=== PATIENT | female | born 1960 | race Caucasian/White ===

== ENCOUNTER 2016-08-24 21:43 | Inpatient (IN) | payer OTHER ==
--- NOTE | ~2016-08-24 | DS ---
Discharge Summary [facility] [address] [place]. [address] NAME: CASSANDRA ROCK : 62 STATUS : ADM IN [facility]#: [id number] AGE: 55 ADM/REG DATE : 08/24/16 MR#: [id number] REPORT SERV DATE: 08/29/16 DICTATED BY: PABLO WAITE DATE: 08/29/16 REPORT STATUS : Draft TRANSCRIBED BY: MODL DATE: 08/29/16 ADMISSION DATE: 08/24/2016 DISCHARGE DATE: 08/29/2016 DIAGNOSES ON ADMISSION: 1. Dyspnea. 2. Chest pain. 3. History of rectal cancer. 4. Thoracic ascending aneurysm. 5. Large hiatal hernia. 6. Adrenal insufficiency. DIAGNOSES ON DISCHARGE: 1. Dyspnea, present on admission, resolved. No evidence of cardiac cause of dyspnea. 2. Echocardiogram grossly normal with normal systolic function of 55%. Normal right ventricular size and function. Grossly normal diastolic function. Evaluated by Dr. Tejeda. No evidence of cardiac chest pain. 3. Dyspnea, improved. 4. Dyspnea multifactorial secondary to large hiatal hernia as well as weakness, deconditioning. 5. Right middle lobe hazy infiltrates, nonspecific in character, no evidence of infection, seen by lamp cleaner street light, recommended follow up in several weeks with Pulmonary office. 6. History of adrenal insufficiency. Continue hydrocortisone replacement. 7. History of rectal cancer status post chemotherapy, weakness, and decreased nutritional status. Needs to continue physical therapy at home. 8. Thoracic ascending aneurysm. Needs surveillance followup per primary care provider. CONSULTANTS ON THE CASE: Protective Signal Repairer Helper, Dr. Tejeda, and Matthias Stacy, nurse practitioner of Dr. Gaspar. IMAGING DONE DURING THIS HOSPITALIZATION: CT of the chest done on 08/24/2016, showed no evidence of pulmonary embolism, subtle small peripheral pleural-based ground-glass nodular opacities in the right middle lobe, both lower lobes and lingula suggesting a nonspecific inflammatory or infectious process. Does not have neoplastic appearance. No thoracic adenopathy. Mild fusiform aneurysmal change in the ascending thoracic aorta, measuring 3.5 cm, stable from recent prior examination, moderately large 5.7 cm diameter hiatal hernia. Echocardiogram was normal with normal ejection fraction of 55%. HISTORY OF PRESENT ILLNESS: Briefly, this is a 55-year-old female, who was admitted by Dr. Tha Welch on 08/24/2016 with shortness of breath and chest discomfort. For details, see his dictation on the same day, 08/24/2016. Subsequently, the patient was seen by art installer, Dr. Tejeda, who does not think it is cardiac, and he thinks that the patient most likely has a large hiatal hernia, some deconditioning, and he also recommended pulmonary evaluation for this patient for the Discharge Summary [address] [address] NAME: CASSANDRA ROCK : 62 STATUS : ADM IN PAT#: [id number] AGE: 55 ADM/REG DATE : 08/24/16 MR#: [id number] REPORT SERV DATE: 08/29/16 DICTATED BY: PABLO WAITE DATE: 08/29/16 REPORT STATUS : Draft TRANSCRIBED BY: DAYSI DATE: 08/29/16 nodular infiltrates on the CT of the chest. Matthias Stacy saw the patient and he thinks that the exertional dyspnea is multifactorial secondary to large hiatal hernia and patchy ground- glass opacities in the lungs. He does not think it is infectious process in the lungs. He recommended pulmonary function testing to be done while she is inpatient and then Matthias Stacy was okay, the patient to be discharged and follow up with Pulmonary Clinic, as well as Dr. Tejeda does not think that the patient needs Lasix, may be minimal dose of 20 mg a day since BNP was in the normal range, it was 9.4, so I discussed this personally with Dr. Tejeda and he said if it is really needed, just a minimal dose of Lasix 20 mg a day. At the same time, we recommended to optimize her nutrition and nourishment status to take Ensure with meals and physical therapy and follow up with Pulmonary as well as with her primary care physician, Sosa Waite, and home health with physical therapy, as well as she needs to follow up with her oncologist, Dr. David Esposito. I recommended the patient to stop estrogen-progesterone replacement until she talks to Dr. Esposito if she is okay to continue them since she may be at risk for blood clots. Overall, the patient is ready for discharge after she will have pulmonary function testing. Today, she will take Celexa 20 mg a day; Benadryl 25 mg at bedtime; Neurontin 300 mg p.o. daily; hydrocortisone was recommended to take 15 mg in the morning and 5 mg in the evening for her adrenal insufficiency; levothyroxine 88 mcg a day; oxybutynin 5 mg p.o. daily; Protonix 40 mg a day; Zyrtec 10 mg a day; cranberry extract daily; probiotic daily; vitamin B complex daily; multivitamins daily; vitamin D 400 units daily; Tylenol 1000 mg daily p.r.n.; the patient was recommended to avoid NSAIDs and to stop her Advil; Colace 100 mg daily as needed for constipation; MiraLAX 17 g daily; was recommended to stop progesterone- estrogen since they can cause blood clots; she was recommended to take Ensure with meals; Carafate 1 g p.o. before meals and at bedtime; and Lasix 20 mg daily. Follow up with Sosa Waite next week. The patient was discharged in stable condition. Follow up with Dr. Tejeda as needed. I spent 45 minutes on discharge. Also, the patient was told that she will need followups on her aortic aneurysm on a yearly basis with the imaging studies arranged per primary care provider, Sosa Waite. MG/DAYSI Pablo Waite M.D. / [id number] CC: Mireille Oliver CYNTHIA JUNE Garrick B Spoon, PA-C Krishnendu Bhadra, M.D. Discharge Summary [address] [address] NAME: CASSANDRA ROCK : 62 STATUS : ADM IN [facility]#: [id number] AGE: 55 ADM/REG DATE : 08/24/16 MR#: [id number] REPORT SERV DATE: 08/29/16 DICTATED BY: PABLO WAITE DATE: 08/29/16 REPORT STATUS : Draft TRANSCRIBED BY: MODL DATE: 08/29/16 Marcus Tejeda M.D., Paul[place].
--- NOTE | ~2016-08-24 | PUL ---
[id number] [place]. [address] NAME: CASSANDRA ROCK : 62 STATUS : DIS IN PAT#: [id number] AGE: 55 ADM/REG DATE : 08/24/16 MR#: [id number] REPORT SERV DATE: 09/02/16 DICTATED BY: MATTHEW GASPAR DATE: 09/01/16 REPORT STATUS : Draft TRANSCRIBED BY: MODL DATE: 09/01/16 PULMONARY FUNCTION TEST RESULTS: 1. FEV1 of 2.44 L or 105% predicted. 2. Forced vital capacity 3.02 L, 102% predicted. 3. FEV1/FVC of 81%. 4. TLC of 120%. 5. DLCO of 81%. INTERPRETATION: 1. Normal spirometry. 2. Normal lung volumes. 3. Normal DLCO. TIKA/MODL Matthew Gaspar M.D. / [id number] CC: Mireille Oliver
--- NOTE | ~2016-08-24 | HP ---
History And Physical [place] [address] [facility] [place]. [address] NAME: CASSANDRA ROCK : 62 STATUS : ADM [place] PAT#: [id number] AGE: 55 ADM/REG DATE : 08/24/16 MR#: [id number] REPORT SERV DATE: 08/25/16 DICTATED BY: LIUDMILA MCWILLIAMS DATE: 08/25/16 REPORT STATUS : Draft TRANSCRIBED BY: DAYSI DATE: 08/25/16 DATE OF ADMISSION: 08/24/2016 CHIEF COMPLAINT: Chest pain and shortness of breath. HISTORY OF PRESENT ILLNESS: The patient is a 55-year-old female with history of stage III colorectal cancer, hypothyroidism, reflux, PE history, recent treatment of antibiotics for shortness of breath and presumed pneumonia. Additionally was on steroid bursts, who completed steroids approximately 24 to 48 hours ago, and has since had chest pain and shortness of breath today to the point she was unable to even speak when she was breathing so fast. The patient reports these symptoms have been intermittent, moderate to severe in severity with dull sharp chest pain, nonradiating, associated with extreme headache and nausea, improved with Dilaudid. Did have shortness of breath, malaise, weakness. Her symptoms are worse with breathing and exertion, and improved by Dilaudid. Symptoms still were reported to be worse as staying in the emergency room, but improved after steroids, antibiotics, Dilaudid, to the point where she can talk and is able to express what is going on, though she feels just globally weak. REVIEW OF SYSTEMS: GENERAL: No fever, chills, or dizziness, but just generalized weakness. EYE: No eye pain or visual changes. ENT: No sore throat or sinus drainage. NEURO: Positive for headache, but no seizures. SKIN: No rashes or bruising, but does have occasional swelling of her edema. RESPIRATORY: Positive for shortness of breath and dyspnea on exertion. No wheeze. CV: Does have chest pain. No palpitations. Rapid heart beat. GI: No nausea or vomiting. : No dysuria or hematuria. MUSCULOSKELETAL: Baseline myalgias and arthralgias. ENDO: Increased fatigue. No polyuria. HEME: No bleeding or bruising. IMMUNOLOGIC: No rhinorrhea. PSYCH: Notable anxiety, but no confusion. PAST MEDICAL HISTORY: 1. Rectal cancer with chemoradiation by Dr. Esposito. 2. GERD. 3. Hypothyroidism. 4. The patient additionally reports that she had hypo-cortisol, but was not quite treated, is currently on the plan to be treated, but has not started treatment until Saturday. She reports that she has had a cortisol level that was absolutely 0 in the past. She also reports that she had these type of adrenal insufficiencies prior to recent treatment for colon cancer. SURGICAL HISTORY: 1. Colon resection for rectal cancer. History And Physical [address] [address] NAME: CASSANDRA ROCK : 62 STATUS : ADM [place] PAT#: [id number] AGE: 55 ADM/REG DATE : 08/24/16 MR#: [id number] REPORT SERV DATE: 08/25/16 DICTATED BY: LIUDMILA MCWILLIAMS DATE: 08/25/16 REPORT STATUS : Draft TRANSCRIBED BY: DAYSI DATE: 08/25/16 2. Hip replacement tubal. 3. Multiple skin biopsies. 4. Colonoscopy, lower anterior resection. SOCIAL HISTORY: . 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 No smoking, alcohol, or illicits. FAMILY HISTORY: Noted for colon cancer. PHYSICAL EXAMINATION: VITAL SIGNS: Blood pressure is 135/92, pulse 85, respirations 22, and O2 saturations 99% on room air. GENERAL: Appears older than stated age, ill-appearing. EYES: No scleral icterus. ENT branham facies. RESPIRATORY: Decreased lower lung bahena, but otherwise clear. No wheezes. CV: Regular rate. No rubs. GI: Soft, nontender, and nondistended. Bowel sounds positive. Central obesity. : Deferred. MUSCULOSKELETAL: Moves all extremities x4. SKIN: Warm and dry. Does have mild swelling in hands. LYMPH: No cervical lymphadenopathy. HEME: No bleeding or bruising. NEURO: Alert and oriented, but does have gross weakness x4. PSYCH: Calm and cooperative, but at times quite anxious. ALLERGIES: TO IRON, MORPHINE, CODEINE, AND TRAMADOL. HOME MEDICATIONS: 1. Tylenol. 2. Augmentin completed. 3. Vitamin B. 4. Zyrtec. 5. Vitamin D. 6. Celexa. 7. Benadryl. 8. Colace. 9. Neurontin. 10.Cortef, which has not yet been started. 11.Advil. 12.Synthroid. 13.Multivitamin. 14.Ditropan. 15.Protonix. 16.MiraLAX. 17.Prednisone completed. 18.Permethrin. History And Physical [address] [address] NAME: CASSANDRA ROCK : 62 STATUS : ADM [place] PAT#: [id number] AGE: 55 ADM/REG DATE : 08/24/16 MR#: [id number] REPORT SERV DATE: 08/25/16 DICTATED BY: LIUDMILA MCWILLIAMS DATE: 08/25/16 REPORT STATUS : Draft TRANSCRIBED BY: MODL DATE: 08/25/16 19.C Biest. 20.Cranberry. 21.Probiotic. 22.OTC reflux medication. LABORATORY DATA: WBC 7.0, H and H 13.8 and 40.3, platelets 160, and INR 0.9. Lactate 2.1. CTA chest: Negative PE. Subtle small peripheral pleural-based ground-glass nodular opacities right middle lobe, both lower lobes, and lingular segmental suggesting nonspecific infection inflammatory disease. No thoracic adenopathy. Mild fusiform aneurysmal change. Ascending thoracic aorta measuring 3.5 cm, stable from prior exam. Moderate large 5.7 cm diameter hiatal hernia. BNP 9.4. Procalcitonin negative. Bicarb 19, creatinine 1.2, potassium 3.6. Troponin negative. Magnesium 2.4. ABG; pH 7.59, pCO2 of 16, PO2 of 124, and bicarb 15.4. EKG: Rate 85, normal sinus rhythm, acute DC 442, low voltage QRS. ASSESSMENT AND PLAN: 1. Dyspnea. 2. Chest pain. 3. Prior rectal cancer. 4. Thoracic ascending aneurysm. 5. Large hiatal hernia. 6. Adrenal insufficiency. PLAN: 1. For dyspnea. Questionable inflammation on CT. Recently stopped antibiotics, may be cause for no leukocytosis; however, still symptomatic. IV antibiotics started in the emergency room. Procalcitonin still slightly low. Monitor repeat lactate. Additionally steroids with what appears to be history of adrenal insufficiency may be causal episodes. 2. Chest pain. Check troponins, echocardiogram. Family requesting Dr. Tejeda consult and PCP. Family reports that PCP was concerned for cardiac cause of dyspnea on exertion and was already recommending echocardiogram, but has not yet been obtained till later in August due to the patient was previously on chemotherapy and has had possible side effect. We will check echocardiogram, troponins, ask Dr. Tejeda for additional consultation and guidance. 3. Prior rectal cancer. Follows with Dr. Esposito and Dr. Berkowitz. 4. Thoracic aneurysm 3.5 cm. Surveillance followup. 5. Large hiatal hernia. PPI, questionable GI consult, as this could possibly cause for chest pain and dyspnea. We will defer to additional workup as already on progress and defer to a.m. team for additional consult. History And Physical [address] [place]. [address] NAME: CASSANDRA ROCK : 62 STATUS : ADM [place] PAT#: [id number] AGE: 55 ADM/REG DATE : 08/24/16 MR#: [id number] REPORT SERV DATE: 08/25/16 DICTATED BY: LIUDMILA MCWILLIAMS DATE: 08/25/16 REPORT STATUS : Draft TRANSCRIBED BY: MODL DATE: 08/25/16 6. Adrenal insufficiency. The patient reports that she has had cortisol in lows, was supposed to be started on Solu-Cortef or Cortef, but has not yet started this. Solu- Medrol has already been given in the emergency room. We will check a.m. cortisol, continue IV steroid initial burst and can transition to p.o. as tolerated. Care to be resumed by Medicine Team in a.m. DISPOSITION: Pending treatment plan as above. DDN/JOVONL Liudmila Mcwilliams MD / [id number] CC: Mireille Landon FNP
--- NOTE | ~2016-08-24 | PUL ---
[address] [address] NAME: CASSANDRA ROCK : 62 STATUS : DIS IN PAT#: [id number] AGE: 55 ADM/REG DATE : 08/24/16 MR#: [id number] REPORT SERV DATE: 09/02/16 DICTATED BY: MATTHEW GASPAR DATE: 09/01/16 REPORT STATUS : Draft TRANSCRIBED BY: MODL DATE: 09/01/16 PULMONARY FUNCTION TEST Overnight oximetry performed on room air. Total valid sampling time was 5 hours 22 minutes and 14 seconds. Saturations were less than 88% for 0 seconds. INTERPRETATION: Normal oximetry report while on room air. TIKA/DAYSI Matthew Gaspar M.D. / [id number] CC: Mireille Oliver
--- NOTE | ~2016-08-24 | CN ---
Consultation Report [address] [place]. [address] NAME: CASSANDRA ROCK : 62 STATUS : ADM [place] PAT#: [id number] AGE: 55 ADM/REG DATE : 08/24/16 MR#: [id number] REPORT SERV DATE: 08/25/16 DICTATED BY: MARCUS TEJEDA DATE: 08/25/16 REPORT STATUS : Draft TRANSCRIBED BY: MODMaryjo DATE: 08/25/16 CARDIOLOGY CONSULTATION DATE OF CONSULTATION: The patient is a 55-year-old white female with history of a negative stress test by Dr. Laurent in 2010. She now presents with progressive dyspnea on exertion over the past couple of weeks. She has been having some associated vague fleeting left pectoral chest discomfort. EKG shows a probable inferior scar. CTA of the chest shows patchy infiltrates but no evidence of pulmonary emboli. PAST MEDICAL HISTORY: Remarkable for thyroid disease, hiatal hernia, and rectal cancer. SOCIAL HISTORY: The patient does not smoke. FAMILY HISTORY: Positive for coronary disease (grandfather). REVIEW OF SYSTEMS: The patient has a nonproductive cough. She has not had any nausea, vomiting, diarrhea, or dysuria. PHYSICAL EXAMINATION: VITAL SIGNS: Blood pressure is 130/70, heart rate is 63 and regular, respirations are 24 and dyspneic. HEENT: ENT exam is unremarkable. NECK: Shows no jugular venous distention with good carotid upstroke. CHEST: Clear. CARDIOVASCULAR: PMI is not displaced. S1 is normal. S2 is narrowly split. No gallop is present. ABDOMEN: Soft and nontender with normal bowel sounds. EXTREMITIES: Show no cyanosis, clubbing, or edema. SKIN: Warm and dry with no pallor or icterus. NEUROLOGIC/PSYCHIATRIC: The patient is oriented x3 with appropriate affect. DATA: BUN is 16, creatinine 1.2. Hematocrit 40.3, white blood cell count 13,800. EKG shows a possible inferior scar. IMPRESSION: 1. Possible new onset angina. 2. Dyspnea seems out of proportion to physical findings. RECOMMENDATIONS: 1. Continue heparin. 2. Check echocardiogram and BNP. Consultation Report [address] [place]. [address] NAME: CASSANDRA ROCK : 62 STATUS : ADM [place] PAT#: [id number] AGE: 55 ADM/REG DATE : 08/24/16 MR#: [id number] REPORT SERV DATE: 08/25/16 DICTATED BY: MARCUS TEJEDA DATE: 08/25/16 REPORT STATUS : Draft TRANSCRIBED BY: DAYSI DATE: 08/25/16 3. Repeat cardiac enzymes. Thank you very much for this consultation. ALEX/DAYSI Marcus Tejeda M.D., F.A.C.C. / [id number] CC: Mireille Landon
--- NOTE | ~2016-08-24 | CN ---
Consultation Report [facility] [address] [place]. [address] NAME: SUNSHINE ROCK : 62 STATUS : ADM IN PAT#: [id number] AGE: 55 ADM/REG DATE : 08/24/16 MR#: [id number] REPORT SERV DATE: 08/28/16 DICTATED BY: JLUIS HENRIQUEZ DATE: 08/28/16 REPORT STATUS : Draft TRANSCRIBED BY: MODL DATE: 08/28/16 DATE OF CONSULTATION: 08/28/2016 CHIEF COMPLAINT: Dyspnea on exertion. HISTORY OF PRESENT ILLNESS: Mrs. Sunshine Rock is a pleasant 55-year-old white female with a past medical history significant for rectal cancer status post resection with chemotherapy, hiatal hernia, and concomitant gastroesophageal reflux disease, and pulmonary embolism, who presents to [facility] with complaints of worsening shortness of breath. It should be noted that Mrs. Rock has not been hospitalized recently. She has had a difficult course over the last year. Mrs. Rock is not currently established with a jet man. She does not usually require supplemental oxygen. She is on no pulmonary medications. She describes herself as a never smoker. The patient largely denies symptomatology related to obstructive sleep apnea. She describes her exercise tolerance over the last year as being poor. She is only able to ambulate a few feet before experiencing some degree of shortness of breath. The patient was diagnosed with rectal cancer approximately a year ago. She did receive radiation and chemotherapy with later resection. She also has a history of adrenal insufficiency and has had treatment of Solu-Cortef. More recently, she has had some upper respiratory issues, including sinus drainage and some cough. She did receive some antibiotics and steroids for this as well. Over the last two to three weeks, she has become more short of breath, which she attributes to the initiation of some prednisone. Her breathing became so labored that she eventually presented to [facility]'s emergency room. Upon arrival, she was found to have a white blood cell count of 7000. Procalcitonin was negative at 0.05. An arterial blood gas was obtained, which revealed a pH of 7.59, PaCO2 of 16, PaO2 of 123, and a bicarbonate of 15.4 on room air. She did eventually undergo a CTA of the chest, which did not demonstrate any pulmonary embolism. There were some patchy ground- glass infiltrates noted towards the periphery of the lung. For the aforementioned reasons, she has been referred to the Pulmonary Service for further assessment. Currently, the patient's main pulmonary complaint is shortness of breath. This is worse on exertion and relieved by rest. She has no cough. She has no wheeze. She denies recurrent pneumonias. She denies childhood asthma. She has had pulmonary embolism in the past and was on Eliquis for six months. She is not currently on this medication. The patient has had a recent cardiac workup which by her report is negative. She has no murmurs, angina, or palpitations. She has had a little bit of edema as of late, which again she attributes to her recent prednisone treatment. In regard to constitutional symptoms, she currently denies fever, chills, nausea, vomiting, chest pain, or abdominal pain. PAST MEDICAL HISTORY: Consultation Report [address] [place]. [address] NAME: SUNSHINE ROCK : 62 STATUS : ADM IN MERGED WITH [facility]#: [id number] AGE: 55 ADM/REG DATE : 08/24/16 MR#: [id number] REPORT SERV DATE: 08/28/16 DICTATED BY: JLUIS HENRIQUEZ DATE: 08/28/16 REPORT STATUS : Draft TRANSCRIBED BY: DAYSI DATE: 08/28/16 1. Thyroid disease. 2. Hiatal hernia. 3. Rectal cancer. 4. Gastroesophageal reflux disease. 5. Pulmonary embolism. 6. Adrenal insufficiency. 7. Left total hip replacement. 8. Low-anterior rectal resection. 9. Tubal ligation. 10.Skin biopsies of basal cell. FAMILY HISTORY: The patient denies a family history of lung disease. SOCIAL HISTORY: The patient is with her currently at bedside. They do not have children. 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 Denies any known exposures to dust, silica, or asbestos. TOBACCO/ALCOHOL: As previously mentioned, the patient denies any previous smoking history. She denies any recent alcohol or illicit drug use. MEDICATIONS: 1. Acetaminophen. 2. Zyrtec 10 mg. 3. Celexa 20 mg. 4. Gabapentin 300 mg. 5. Cortef. 6. Levothyroxine 88 mcg. 7. Pantoprazole 40 mg. 8. Progestin. ALLERGIES: THE PATIENT HAS ADVERSE REACTIONS TO IRON, MORPHINE, CODEINE, AND TRAMADOL. REVIEW OF SYSTEMS: Complete review of systems was performed with pertinent positives and negatives contained within the body of the HPI. PHYSICAL EXAMINATION: VITAL SIGNS: Blood pressure is 136/87, heart rate is 87, T-max is 96.8, respiratory rate is 16, SpO2 is 96% on room air. GENERAL: The patient is a pleasant, well-nourished/well-developed female, who is not currently exhibiting any signs of acute distress. SKIN: Skin with appropriate texture and turgor. No rashes, lesions, or ulcers. Nails are clear without cyanosis or clubbing. HEENT: Head: Skull is normocephalic/atraumatic. Facies symmetric. No masses or lesions. Eyes: Sclera anicteric, conjunctiva pink without exudates. Extraocular movements intact. Consultation Report [facility] [id number] [place]. [address] NAME: SUNSHINE ROCK : 62 STATUS : ADM IN MERGED WITH [facility]#: [id number] AGE: 55 ADM/REG DATE : 08/24/16 MR#: [id number] REPORT SERV DATE: 08/28/16 DICTATED BY: JLUIS HENRIQUEZ DATE: 08/28/16 REPORT STATUS : Draft TRANSCRIBED BY: DAYSI DATE: 08/28/16 Pupils are equal, round, reactive to light. Ears: Auricles and tragus without pain to palpation. Hearing is grossly intact. Nose: Bilateral nasal patency. Sinuses without tenderness upon palpation. Throat: Dentition. Lips, oral mucosa, tongue, palate, and pharynx pink and moist without lesions. Uvula rises equally on phonation. Tongue midline without deviation. NECK: Neck supple. Trachea midline. No cervical lymphadenopathy appreciated. THORAX/LUNGS: Thorax is symmetric with equal chest rise. Breath sounds audible through entire field. No rales, wheezes, rhonchi. Faint inspiratory crackles in the posterior lung bahena. CARDIOVASCULAR: Regular rate and rhythm. No murmurs, rubs, or gallops. Anterior chest without thrills, heaves, or lifts. ABDOMEN: Soft, Nondistended, nontender. Active bowel sounds in all four quadrants. No hepatosplenomegaly noted. PERIPHERAL VASCULAR: No edema. No varicosities, stasis changes, open sores, ulcerations, or phlebitis. 2+ pulses in radial and dorsalis pedis. MUSCULOSKELETAL: Full AROM and PROM in all joints. No evidence of erythema, deformity, or crepitus. NEUROLOGIC: CN II through XII grossly intact. Good muscle bulk and tone bilaterally. Strength 5/5 throughout. PSYCHIATRIC: The patient demonstrates good judgment and insight. PT is A and O x3. ACCESSORY DATA: Reveals a creatinine of 0.96, BNP is 18.8, white blood cell count is 7800. CTA of the chest reveals no pulmonary embolism. There is a upqgeezk-wi-swqnb 5.7 cm hiatal hernia. There are subtle small peripheral pleural based ground-glass nodular opacities in the right middle, both lower lobes and the lingular segment. Echocardiogram reveals a left ventricular ejection fraction of 55%. IMPRESSION: 1. Dyspnea on exertion-multifactorial:-deconditioning in hiatal hernia. 2. Patchy ground-glass opacities suggestive of inflammatory process, possibly secondary to gastroesophageal reflux disease. 3. Adrenal insufficiency. 4. History of pulmonary embolism. 5. History of rectal cancer. PLAN: 1. In regard to the patient's dyspnea on exertion, this is likely multifactorial in nature and secondary to overall deconditioning and possibly some component of her hiatal hernia. While she is in the hospital, we will obtain pulmonary function testing with DLCO. Further studies might include a V/Q scan as well as an overnight pulse oximetry. Certainly, the majority of this ongoing workup could be obtained in our outpatient clinic. 2. The patient does have patchy ground-glass opacities suggestive of an inflammatory process. We can certainly follow these again in our outpatient clinic with followup scans. Consultation Report [facility] [address] [place] [place]. [address] NAME: SUNSHINE ROCK : 62 STATUS : ADM IN PAT#: [id number] AGE: 55 ADM/REG DATE : 08/24/16 MR#: [id number] REPORT SERV DATE: 08/28/16 DICTATED BY: JLUIS HENRIQUEZ DATE: 08/28/16 REPORT STATUS : Draft TRANSCRIBED BY: MODMaryjo DATE: 08/28/16 3. The aforementioned impression and plan has been discussed with Dr. Gaspar, who will follow further recommendations. We thank you for this consult and look forward to participating in the care of Mrs. Rock, this certainly be from her reflex at hour of sleep. GBS/MODL Jluis Henriquez PA-C / [id number] CC: Mireille Oliver CYNTHIA JUNE
[~2016-08-24 21:43] MED LIST: ACET500CAP PO; ACID REDUCER OTC PO; BEN25 PO; CELEXA20 PO; CHEMO-THERAPY INF; COMPOUNDED HORMONE TOP; CRANBERRY EXTRACT PO; CRANBERY450 MG PO; DITRO5 PO; DSS PO; ELIQUIS 5 MG TAB5 MG PO; IBU800 PO; KLONO5 PO; KLOR-CON M2020 MEQ PO; LEVOTHYROXIN112 MCG PO; MELA3 PO; NORCO1 TA2 PO; PERCOCET1 TA2 PO; PHILLIP COLON HEALTH PO; PRILO PO; PROBIOTIC PO; PROGESTERONE PO; PROMETRIUM PO; PROTONIX PO; REG PO; ZANTAC150 MG PO; ZOFRAN8 PO; ZYRTEC ALLGY10 MG PO; [UNRECOGNIZED DRUG - OTHER] TOP; [UNRECOGNIZED DRUG - OTHER] TOP
[2016-08-24 22:27] LABS: BASOPHILS 0.3 %; BASOPHILS ABSOLUTE 0.02 10/3/uL (0.0-0.16); EOSINOPHILS ABSOLUTE 0.14 10/3/uL (0.0-0.53); IMMATURE GRANULOCYTES 0.6 %; IMMATURE GRANULOCYTES ABSOLUTE 0.04 10/3/uL (0.0-0.11); LYMPHOCYTES 25.9 %; LYMPHOCYTES ABSOLUTE 1.82 10/3/uL (0.67-4.30); MEAN CORPUS HGB CONC 34.2 g/dL (32.0-36.0); MEAN CORPUSCULAR HEMOGLOB 31.7 pg (26.0-34.0); MEAN CORPUSCULAR VOLUME 92.6 fL (80-100); MEAN PLATELET VOLUME 9.7 fL (9.2-13.0); MONOCYTES 11.8 %; MONOCYTES ABSOLUTE 0.83 10/3/uL (0.21-1.20); NEUTROPHILS 59.4 %; NEUTROPHILS ABSOLUTE 4.19 10/3/uL (2.02-8.40); PLATELET COUNT 168 10/3/uL (150-400); RBC DISTRIBUTION WIDTH 16.3 % (12.0-16.0)
[2016-08-24 22:31] LABS: ER CBC TAT 0 Hrs 07 Mins; HEMATOCRIT 40.3 % (36.0-48.0); HEMOGLOBIN 13.8 g/dL (12.0-16.0); MANUAL DIFF NO %; RED CELL COUNT 4.35 10/6/uL (4.0-5.6)
[2016-08-24 22:40] LABS: INTERNATIONAL NORMAL RATI 0.9 UNITS (-); PARTIAL THROMBO TIME 26.6 SEC (22.5-37.2)
[2016-08-24 22:44] LABS: BUN (BLOOD UREA NITROGEN) 16 MG/DL (6-23); CALCIUM, SERUM 9.4 MG/DL (8.5-10.4); CHEST PAIN PROFILE TAT 0 Hrs 20 Mins; CHLORIDE, SERUM 108 MMOL/L (96-112); CO2 (CARBON DIOXIDE) 19 MMOL/L (24-34); GFR AFRICAN AMERICAN 59 ML/MIN (>=60); GFR NON AFRICAN AMERICAN 51 ML/MIN (>=60); GLUCOSE, SERUM 99 MG/DL (60-99); POTASSIUM, SERUM 3.6 MMOL/L (3.5-5.3); SODIUM, SERUM 140 MMOL/L (135-148); TROPONIN I <0.02 NG/ML (<0.05)
[2016-08-24 23:01] LABS: MEMORIAL CHEMISTRY < 0.05
[2016-08-24 23:13] LABS: LACTATE 2.1 MMOL/L (0.3-2.4)
[2016-08-24 23:46] LABS: PROCALCITONIN <0.05 ng/mL (<0.5)
[2016-08-25 00:05] LABS: INSTRUMENT SERIAL # 8087
[2016-08-25 00:06] LABS: ALLENS TEST Pos; BE (BASE EXCESS) -3.6 MEQ/L (0 +/- 2.5); CARBOXYHEMOGLOBIN 0.9 % (0-3); HCO3 (ACTUAL BICARBONATE) 15.4 MEQ/L (23-27); HEMOBLOGIN CONTENT 12.8 G/DL (12-16); METHEMOGLOBIN 0.1 % (0-3); O2 CONTENT 17.8 VOL% (18-24); OPERATOR ID 17589; PCO2 (CO2 TENSION) 16 MMHG (35-45); PO2 (O2 TENSION) 124 MMHG (79-93); SAMPLE Arterial; pH 7.59 (7.37-7.43)
[2016-08-25] MEDS ORDERED: CORTEF5 PO ×2 (01:25→01:26)
[2016-08-25] MEDS ORDERED: DITRO5 PO (01:26)
[2016-08-25] MEDS ORDERED: SYN88 PO (01:26)
[2016-08-25] MEDS ORDERED: AUG875 PO (01:27)
[2016-08-25] MEDS ORDERED: [UNRECOGNIZED DRUG - OTHER] TOP (01:29)
[2016-08-25] MEDS ORDERED: NEUR300 PO (01:30)
[2016-08-25] MEDS ORDERED: PROTONIX PO (01:30)
[2016-08-25] MEDS ORDERED: CELEXA40 MG PO (01:30)
[2016-08-25] MEDS ORDERED: ZYRTEC ALLGY10 MG PO (01:30)
[2016-08-25] MEDS ORDERED: STERAPDS12 (01:30)
[2016-08-25] MEDS ORDERED: CRANBERRY 4200 MG PO (01:31)
[2016-08-25] MEDS ORDERED: BEN25 PO (01:31)
[2016-08-25] MEDS ORDERED: PROBIOTIC OTC PO (01:31)
[2016-08-25] MEDS ORDERED: VITAMIN B PO (01:31)
[2016-08-25] MEDS ORDERED: VITAMIN D400 UNI1 PO (01:32)
[2016-08-25] MEDS ORDERED: MULTIVIT/MIN PO (01:32)
[2016-08-25] MEDS ORDERED: ACET500CAP PO (01:32)
[2016-08-25] MEDS ORDERED: DSS PO (01:32)
[2016-08-25] MEDS ORDERED: ADVIL PO (01:32)
[2016-08-25] MEDS ORDERED: OTC ACID REDUCER PO (01:33)
[2016-08-25] MEDS ORDERED: MIRALAX POWDER1 PKT PO (01:33)
[2016-08-25] MEDS ORDERED: PROMETRIUM PO ×2 (01:51→01:52)
[2016-08-25 06:12] LABS: BASOPHILS 0.1 %; BASOPHILS ABSOLUTE 0.01 10/3/uL (0.0-0.16); EOSINOPHILS 0.1 %; EOSINOPHILS ABSOLUTE 0.01 10/3/uL (0.0-0.53); HEMATOCRIT 36.8 % (36.0-48.0); HEMOGLOBIN 12.5 g/dL (12.0-16.0); IMMATURE GRANULOCYTES 0.6 %; IMMATURE GRANULOCYTES ABSOLUTE 0.05 10/3/uL (0.0-0.11); LYMPHOCYTES 9.5 %; LYMPHOCYTES ABSOLUTE 0.74 10/3/uL (0.67-4.30); MEAN CORPUSCULAR HEMOGLOB 31.6 pg (26.0-34.0); MEAN CORPUSCULAR VOLUME 93.2 fL (80-100); MEAN PLATELET VOLUME 9.2 fL (9.2-13.0); MONOCYTES 2.3 %; MONOCYTES ABSOLUTE 0.18 10/3/uL (0.21-1.20); NEUTROPHILS 87.4 %; NEUTROPHILS ABSOLUTE 6.79 10/3/uL (2.02-8.40); PLATELET COUNT 166 10/3/uL (150-400); RBC DISTRIBUTION WIDTH 16.1 % (12.0-16.0); RED CELL COUNT 3.95 10/6/uL (4.0-5.6); WHITE BLOOD CELLS 7.8 10/3/uL (4.5-10.5)
[2016-08-25 06:14] LABS: MANUAL DIFF NO %
[2016-08-25 06:21] LABS: ASCORBIC ACID (UR NOT ORDER) NEG (NEG); BILIRUBIN, URINE NEGATIVE (NEG); KETONE, URINE NEGATIVE (NEG); LEUKOCYTE ESTERASE(NOT OR NEG (NEG); WBC (NOT ORDERED) (RFLEX) < 1 (0-5)
[2016-08-25 06:25] LABS: BUN (BLOOD UREA NITROGEN) 14 MG/DL (6-23); CALCIUM, SERUM 8.9 MG/DL (8.5-10.4); CHLORIDE, SERUM 109 MMOL/L (96-112); CO2 (CARBON DIOXIDE) 20 MMOL/L (24-34); CREATININE 1.21 MG/DL (0.55-1.02); GFR AFRICAN AMERICAN 59 ML/MIN (>=60); GFR NON AFRICAN AMERICAN 51 ML/MIN (>=60); POTASSIUM, SERUM 4.2 MMOL/L (3.5-5.3); SGOT(AST) 15 U/L (5-40); SGPT(ALT) 30 U/L (5-65); SODIUM, SERUM 141 MMOL/L (135-148); TROPONIN I <0.02 NG/ML (<0.05); ULTRASENSITIVE TSH 0.545 MCIU/ML (0.358-3.740)
[2016-08-25 06:26] LABS: A/G RATIO 0.9 (0.7-1.9); ALBUMIN 3.4 G/DL (3.5-5.0); ALKALINE PHOSPHATASE 125 U/L (45-117); GLOBULIN 3.9 G/DL (2.5-4.1); GLUCOSE, SERUM 157 MG/DL (60-99); TOTAL BILIRUBIN 0.3 MG/DL (0-1.2); TOTAL PROTEIN 7.3 G/DL (6.0-8.5)
[2016-08-26 07:20] LABS: ALBUMIN 3.4 G/DL (3.5-5.0); ALKALINE PHOSPHATASE 111 U/L (45-117); BUN (BLOOD UREA NITROGEN) 11 MG/DL (6-23); CHLORIDE, SERUM 113 MMOL/L (96-112); CO2 (CARBON DIOXIDE) 20 MMOL/L (24-34); CREATININE 0.79 MG/DL (0.55-1.02); GFR AFRICAN AMERICAN 98 ML/MIN (>=60); GFR NON AFRICAN AMERICAN 85 ML/MIN (>=60); GLOBULIN 3.5 G/DL (2.5-4.1); GLUCOSE, SERUM 125 MG/DL (60-99); POTASSIUM, SERUM 3.9 MMOL/L (3.5-5.3); PREALBUMIN 26.7 MG/DL (17.0-43.0); SGOT(AST) 13 U/L (5-40); SGPT(ALT) 28 U/L (5-65); SODIUM, SERUM 144 MMOL/L (135-148); TOTAL BILIRUBIN 0.3 MG/DL (0-1.2); TOTAL PROTEIN 6.9 G/DL (6.0-8.5)
[2016-08-27 04:40] LABS: CALCIUM, SERUM 9.5 MG/DL (8.5-10.4); CHLORIDE, SERUM 109 MMOL/L (96-112); CO2 (CARBON DIOXIDE) 23 MMOL/L (24-34); CREATININE 0.86 MG/DL (0.55-1.02); GFR AFRICAN AMERICAN 89 ML/MIN (>=60); GFR NON AFRICAN AMERICAN 77 ML/MIN (>=60); GLUCOSE, SERUM 119 MG/DL (60-99); POTASSIUM, SERUM 3.8 MMOL/L (3.5-5.3); SODIUM, SERUM 141 MMOL/L (135-148)
[2016-08-27 04:41] LABS: BUN (BLOOD UREA NITROGEN) 17 MG/DL (6-23)
[2016-08-28 05:58] LABS: BUN (BLOOD UREA NITROGEN) 20 MG/DL (6-23); CALCIUM, SERUM 9.6 MG/DL (8.5-10.4); CHLORIDE, SERUM 104 MMOL/L (96-112); CREATININE 0.96 MG/DL (0.55-1.02); GFR AFRICAN AMERICAN 78 ML/MIN (>=60); GFR NON AFRICAN AMERICAN 67 ML/MIN (>=60); GLUCOSE, SERUM 102 MG/DL (60-99); POTASSIUM, SERUM 3.3 MMOL/L (3.5-5.3); SODIUM, SERUM 141 MMOL/L (135-148)
[2016-08-28 05:59] LABS: CO2 (CARBON DIOXIDE) 29 MMOL/L (24-34)
[2016-08-29 04:58] LABS: BUN (BLOOD UREA NITROGEN) 23 MG/DL (6-23); CALCIUM, SERUM 9.5 MG/DL (8.5-10.4); CHLORIDE, SERUM 102 MMOL/L (96-112); CO2 (CARBON DIOXIDE) 29 MMOL/L (24-34); CREATININE 0.93 MG/DL (0.55-1.02); GFR AFRICAN AMERICAN 81 ML/MIN (>=60); GFR NON AFRICAN AMERICAN 70 ML/MIN (>=60); GLUCOSE, SERUM 97 MG/DL (60-99); PHOSPHORUS, SERUM 3.5 MG/DL (2.5-4.5); POTASSIUM, SERUM 3.8 MMOL/L (3.5-5.3); SODIUM, SERUM 139 MMOL/L (135-148)
[2016-08-29] MEDS ORDERED: L20 PO (17:07)
[2016-08-29] MEDS ORDERED: SUCR PO (17:08)
[2016-12-13] MEDS ORDERED: MAGOX4 PO (11:21)
[2016-12-13] MEDS ORDERED: KLOR-CON M1010 MEQ PO (11:21)
[2016-12-13] MEDS ORDERED: EVOXAC30 MG PO (11:22)
[2016-12-13] MEDS ORDERED: VITC500 PO (11:25)
[2016-12-13] MEDS ORDERED: MELA3 PO (11:26)
[2016-12-13] MEDS ORDERED: TYLENOL PM PO (11:27)
[2016-12-13] MEDS ORDERED: PROMETRIUM200 MG PO (12:08)
[2016-12-15] MEDS ORDERED: ZOFRAN4 PO (09:53)
[2016-12-15] MEDS ORDERED: PERCOCET 7.5/321 TAB PO (09:53)
== END 2016-08-29 18:19 | disposition home health service (06) | DRG 204 ==
LOC: ER 21:43 → 5NO 23:59
PROVIDERS: Emergency Medicine; Internal Medicine; Nurse Practitioner; Physician Assistant Medical; Student in an Organized Health Care Education/Training Program
DX: R06.00 Dyspnea, unspecified (principal); I71.2 Thoracic aortic aneurysm, without rupture; E27.40 Unspecified adrenocortical insufficiency; K44.9 Diaphragmatic hernia without obstruction or gangrene; Z85.048 Personal history of other malignant neoplasm of rectum, rectosigmoid junction, and anus; K21.9 Gastro-esophageal reflux disease without esophagitis; Z92.21 Personal history of antineoplastic chemotherapy; Z86.711 Personal history of pulmonary embolism; Z96.642 Presence of left artificial hip joint; E03.9 Hypothyroidism, unspecified; R07.9 Chest pain, unspecified; Z68.30 Body mass index [BMI] 30.0-30.9, adult; R91.8 Other nonspecific abnormal finding of lung field
CPT/HCPCS: 36600; 71010; 71275; 80048; 80053; 81001; 82533; 82805; 83605; 83735; 83880; 84100; 84132; 84134; 84145; 84443; 84484; 85025; 85610; 85730; 87040; 93005; 93306; 94010; 94726; 94729; 94762; 96365; 96375; 97110-GO; 97116-GP; 97161-GP; 97166-GO; 99285; A9270-GY; C9113; G8987-CK-GO; G8988-CK-GO; G8989-CK-GO; J1170; J1956; J2405; J2920; J2930; Q9967